=== PATIENT | female | born 1995 | race Caucasian/White ===

== ENCOUNTER 2018-01-17 03:48 | Emergency (ER) | payer BC ==
[~2018-01-17] VITALS: Ht 157.5 cm; Wt 115.0 kg
[2018-01-17 04:00] VITALS: Ht 157.5 cm; Wt 115.0 kg
[2018-01-17] MEDS ORDERED: PROZAC10 MG PO (04:01)
[2018-01-17] MEDS ORDERED: VOLTAREN75 MG PO (04:02)
[2018-01-17] MEDS ORDERED: VISTARIL25 MG PO (04:02)
[2018-01-17] MEDS ORDERED: FEXMID7.5 MG PO (04:02)
[2018-01-17] MEDS ORDERED: TAMIFLU30 MG PO (04:03)
[2018-01-17 05:00] LABS: APPEARANCE HAZY (CLEAR); BILIRUBIN NEGATIVE (NEGATIVE); COLOR YELLOW (YELLOW); GLUCOSE NEGATIVE (NEGATIVE); KETONE NEGATIVE (NEGATIVE); NITRITE NEGATIVE (NEGATIVE); PROTEIN NEGATIVE (NEGATIVE); SPECIFIC GRAVITY 1.015 (1.005-1.020); UROBILINOGEN NORMAL (NORMAL)
[2018-01-17 05:02] LABS: BACTERIA FEW /hpf (NONE SEEN); EPITHELIAL CELLS 0-5 /hpf (0-5); RED CELLS - URINE 0-5 /hpf (0-5); WHITE CELLS - URINE 0-5 /hpf (0-5)
[2018-01-17] MEDS ORDERED: ZOFRAN ODT4 MG/UDTAB PO (06:10)
[2018-01-17] MEDS ORDERED: ULTRAM50 MG PO (06:10)
[2018-01-17 06:49] VITALS: BP 122/78
== END 2018-01-17 06:49 | disposition home or self-care (01) ==
LOC: D.ER 03:48
PROVIDERS: Family Medicine
DX: A08.4 Viral intestinal infection, unspecified (principal)

== ENCOUNTER 2018-01-18 18:04 | Emergency (ER) | payer BC ==
[~2018-01-18] VITALS: Ht 157.5 cm; Wt 113.4 kg
[~2018-01-18 18:04] MED LIST: FEXMID7.5 MG PO; PROZAC10 MG PO; TAMIFLU30 MG PO; ULTRAM50 MG PO; VISTARIL25 MG PO; VOLTAREN75 MG PO; ZOFRAN ODT4 MG/UDTAB PO
[2018-01-18 18:28] VITALS: Ht 157.5 cm; Wt 113.4 kg
[2018-01-18 20:54] LABS: BASOPHILS 0.1 % (0-2); EOSINOPHILS 0.8 % (0-7); HEMATOCRIT 39.7 % (36.0-48.0); HEMOGLOBIN 13.5 g/dL (12-16); IMMATURE GRANULOCYTES 0.3 % (0-5); LYMPHOCYTES 17.6 % (15-50); MCH 29.5 pg (26.0-34.0); MCV 86.7 fL (80.0-100.0); MEAN PLATELET VOLUME 10.3 fL (7.4-10.4); MONOCYTES 6.9 % (2-11); NEUTROPHILS 74.3 % (40-80); PLATELET COUNT 143 10x3/uL (130-400); RBC 4.58 10x6/uL (4.00-5.40); RDW 13.1 % (11.5-14.5); WBC 14.3 10x3/uL (4.8-10.8)
[2018-01-18 21:04] LABS: ALBUMIN 3.2 g/dL (3.4-5.0); ALKALINE PHOSPHATASE 101 U/L (46-116); ALT (SGPT) 28 U/L (10-68); BILIRUBIN - TOTAL 0.36 mg/dL (0.2-1.3); C-REACTIVE PROTEIN 11.8 mg/dL (0.0-0.9); CALC OSMOLALITY 276 mosm/kg (275-300); CALCIUM 8.4 mg/dL (8.5-10.1); CARBON DIOXIDE 25.7 mmol/L (21.0-32.0); CHLORIDE - SERUM 101 mmol/L (98-107); CREATININE - SERUM 0.9 mg/dL (0.6-1.3); GLUCOSE 72 mg/dL (74-106); POTASSIUM - SERUM 3.7 mmol/L (3.5-5.1); PROTEIN - SERUM 7.5 g/dL (6.4-8.2); SODIUM 139 mmol/L (136-145); UREA NITROGEN 12 mg/dL (7-18); eGFR NON AFRICAN AMERICAN 84 mL/min (90-120)
[2018-01-18 22:23] LABS: HCG URINE NEGATIVE (NEGATIVE)
[2018-01-19] MEDS ORDERED: LEVOFLOXACIN500 MG PO (00:18)
[2018-01-19] MEDS ORDERED: PROBIOTIC BLEN1 EACH PO (00:18)
[2018-01-19] MEDS ORDERED: FLAGYL500 MG PO (00:18)
[2018-01-19 00:28] VITALS: BP 129/76
== END 2018-01-19 00:28 | disposition home or self-care (01) ==
LOC: D.ER 18:04
PROVIDERS: Emergency Medicine
DX: K52.9 Noninfective gastroenteritis and colitis, unspecified (principal); R11.0 Nausea